=== PATIENT | female | born 1990 | race Caucasian/White ===

== ENCOUNTER 2021-06-04 15:20 | Outpatient (CLI) | payer BC | END 2021-06-04 15:21 | disposition home or self-care (01) | LOC: SCSMRI 15:20 | PROVIDERS: ATTEND Family Medicine | DX: G50.0 Trigeminal neuralgia (principal); G98.8 Other disorders of nervous system | CPT/HCPCS: 70553 ==

== ENCOUNTER 2021-09-23 14:02 | Outpatient (CLI) | payer BC | END 2021-09-23 14:03 | disposition home or self-care (01) | LOC: SCSRAD 14:02 | PROVIDERS: ATTEND Internal Medicine Rheumatology | DX: M54.50 Low back pain, unspecified (principal) | CPT/HCPCS: 72110 ==